=== PATIENT | female | born 1940 | race Caucasian/White ===

== ENCOUNTER 2017-03-24 11:13 | Emergency (ER) | payer OTHER ==
[~2017-03-24] VITALS: Ht 157.5 cm; Wt 78.9 kg
[2017-03-24] MEDS ORDERED: MILLIPRED DP5 M1 (11:28)
[2017-03-24] MEDS ORDERED: ADULT ASPIRIN81 MG (11:28)
[2017-03-24] MEDS ORDERED: FORTAMET500 MG (11:28)
[2017-03-24] MEDS ORDERED: LOSARTAN-HCTZ1 EAC2 (11:29)
[2017-03-24] MEDS ORDERED: SIMVASTATIN5 MG (11:29)
== END 2017-03-24 14:21 | disposition home or self-care (01) ==
LOC: ER 11:13
DX: B34.9 Viral infection, unspecified (principal)

== ENCOUNTER 2018-08-28 09:29 | Emergency (ER) | payer OTHER ==
[~2018-08-28] VITALS: Ht 162.6 cm; Wt 83.5 kg
[~2018-08-28 09:29] MED LIST: ADULT ASPIRIN81 MG; FORTAMET500 MG; LOSARTAN-HCTZ1 EAC2; MILLIPRED DP5 M1; SIMVASTATIN5 MG
[2018-08-28] MEDS ORDERED: GABAPENTIN600 MG (10:06)
[2018-08-28] MEDS ORDERED: LEVOTHYROXINE25 MCG (10:06)
[2018-08-28] MEDS ORDERED: SKELAXIN800 MG PO (14:52)
== END 2018-08-28 14:59 | disposition home or self-care (01) ==
LOC: ER 09:29
DX: S00.03XA Contusion of scalp, initial encounter (principal); S19.89XA Other specified injuries of other specified part of neck, initial encounter; W10.8XXA Fall (on) (from) other stairs and steps, initial encounter; Y93.E9 Activity, other interior property and clothing maintenance; Y92.018 Other place in single-family (private) house as the place of occurrence of the external cause; Y99.8 Other external cause status

== ENCOUNTER 2019-02-19 10:03 | Outpatient (CLI) | payer OTHER ==
[~2019-02-19 10:03] MED LIST changes: +GABAPENTIN600 MG; +LEVOTHYROXINE25 MCG; +SKELAXIN800 MG PO
== END 2019-02-19 11:38 | disposition home or self-care (01) ==
LOC: LAB 10:03
DX: E11.9 Type 2 diabetes mellitus without complications (principal); I10 Essential (primary) hypertension

== ENCOUNTER 2019-03-05 07:13 | Outpatient (CLI) | payer OTHER | END 2019-03-05 07:25 | disposition home or self-care (01) | LOC: NUCLEAR 07:13 | DX: I87.2 Venous insufficiency (chronic) (peripheral) (principal) ==

== ENCOUNTER → 2019-03-05 | Outpatient (CLI) | payer OTHER | END | disposition home or self-care (01) | LOC: TOM 09:06 | DX: E11.9 Type 2 diabetes mellitus without complications (principal); I63.50 Cerebral infarction due to unspecified occlusion or stenosis of unspecified cerebral artery; I10 Essential (primary) hypertension ==

== ENCOUNTER 2021-08-31 09:30 | Outpatient (CLI) | payer OTHER | END 2021-08-31 10:17 | disposition home or self-care (01) | LOC: MRI 09:30 | PROVIDERS: ATTEND Internal Medicine Cardiovascular Disease | DX: M12.9 Arthropathy, unspecified (principal) | CPT/HCPCS: 73218 ==